=== PATIENT | female | born 1990 | race Caucasian/White ===

== ENCOUNTER 2019-12-13 23:02 | Emergency (ER) | payer MEDICAID ==
[~2019-12-13] VITALS: Ht 160 cm; Wt 122.9 kg
[2019-12-13 23:14] VITALS: Ht 160 cm; Wt 122.9 kg
[2019-12-14 00:03] VITALS: BP 131/78
== END 2019-12-13 23:58 | disposition home or self-care (01) ==
LOC: ED 23:02
DX: L03.211 Cellulitis of face (principal); J35.8 Other chronic diseases of tonsils and adenoids; R07.89 Other chest pain